=== PATIENT | female | born 1990 | race Two or more races ===

== ENCOUNTER 2018-12-07 22:36 | Emergency (ER) | payer OTHER ==
[~2018-12-07] VITALS: Ht 152.4 cm; Wt 77.1 kg
[2018-12-08] VITALS: BP 143/81
[2018-12-08] MEDS: GENTAMICIN OPTH sol 0.3% 5ml EACHEYE ONE (01:05)
== END 2018-12-08 01:12 | disposition home or self-care (01) ==
LOC: ER 22:38
DX: H10.9 Unspecified conjunctivitis (principal)

== ENCOUNTER 2019-04-27 09:44 | Emergency (ER) | payer MEDICAID ==
[~2019-04-27] VITALS: Ht 152.4 cm; Wt 81.6 kg
[2019-04-27 10:18] LABS: Basophils # (auto) 0.1 uL; Eosinophils # (auto) 0 uL; Hemoglobin 12.6 g/dL (12.2-16.2); Monocytes # (auto) 0.7 uL; Monocytes % (auto) 6.6 % (0.0-12.0); Nucleated Red Blood Cells % 0.1 %
[2019-04-27 10:20] LABS: Basophils % (auto) 0.5 % (0.0-2.0); Eosinophils % (auto) 0.4 % (0.0-7.0); Hematocrit 39.1 % (36.0-46.0); Lymphocytes # (auto) 1.9 uL; Mean Corpuscular Hemoglobin 26.2 pg (28.0-32.0); Mean Corpuscular Hgb Conc. 32.2 g/dL (32.0-36.0); Mean Corpuscular Volume 81.4 fL (80.0-100.0); Neutrophils % (auto) 74.5 % (37.0-80.0); Platelet Count (auto) 233 10^3/uL (140-450); Red Cell Distribution Width 16.9 % (11.8-14.3); White Blood Cell 10.8 10^3/uL (4.4-10.8)
[2019-04-27 10:28] LABS: Urine Bacteria NONE SEEN /hpf (None Seen); Urine Blood 3+ /uL (Negative); Urine WBC 10778 /hpf (0 - 5); Urine WBC Clumps PRESENT /hpf (None Seen)
[2019-04-27 10:38] LABS: Alanine Aminotransferase 17 U/L (13-56); Albumin 3.7 g/dL (3.4-5.0); Anion Gap 6 (5-15); Aspartate Aminotransferase 8 U/L (15-37); BUN/Creatinine Ratio 13.8; Blood Urea Nitrogen 11 mg/dL (7-18); Calcium 8.6 mg/dL (8.5-10.1); Carbon Dioxide 24 mmol/L (21-32); Chloride 108 mmol/L (98-107); GFR African American 111 mL/min; GFR Non-African American 91 mL/min; Glucose 100 mg/dL (74-106); Potassium 3.9 mmol/L (3.5-5.1); Sodium 138 mmol/L (136-145)
[2019-04-27 10:41] LABS: Alkaline Phosphatase 97 U/L (45-117); Bilirubin, Total < 0.1 mg/dL (0.2-1.0); Total Protein 7.8 g/dL (6.4-8.2)
[2019-04-27 11:24] LABS: Urine Specific Gravity 1.035 (1.001-1.035)
[2019-04-27 12:32] VITALS: BP 110/65
== END 2019-04-27 13:45 | disposition home or self-care (01) ==
LOC: ER 09:46
DX: O03.9 Complete or unspecified spontaneous abortion without complication (principal); N39.0 Urinary tract infection, site not specified
CPT/HCPCS: 36415; 76801; 80053; 81001; 84702; 85025

== ENCOUNTER 2019-05-26 16:07 | Emergency (ER) | payer MEDICAID ==
[~2019-05-26] VITALS: Ht 152.4 cm; Wt 83.0 kg
[2019-05-26 17:13] VITALS: BP 125/81
== END 2019-05-26 17:57 | disposition home or self-care (01) ==
LOC: ER 16:07
DX: J03.90 Acute tonsillitis, unspecified (principal)

== ENCOUNTER 2019-09-14 19:40 | Emergency (ER) | payer MEDICAID ==
[~2019-09-14] VITALS: Ht 152.4 cm; Wt 80.3 kg
[2019-09-14 20:51] LABS: Basophils # (auto) 0 uL; Eosinophils # (auto) 0.1 uL; Hemoglobin 12.8 g/dL (12.2-16.2); Lymphocytes # (auto) 1.6 uL; Mean Corpuscular Volume 81.4 fL (80.0-100.0); Monocytes # (auto) 0.7 uL; Neutrophils # (auto) 6.6 uL; Nucleated Red Blood Cells % 0.1 %
[2019-09-14 20:53] LABS: Basophils % (auto) 0.3 % (0.0-2.0); Eosinophils % (auto) 0.8 % (0.0-7.0); Hematocrit 38.3 % (36.0-46.0); Lymphocytes % (auto) 17.4 % (10.0-50.0); Mean Corpuscular Hemoglobin 27.2 pg (28.0-32.0); Mean Corpuscular Hgb Conc. 33.5 g/dL (32.0-36.0); Monocytes % (auto) 8.1 % (0.0-12.0); Neutrophils % (auto) 73.4 % (37.0-80.0); Platelet Count (auto) 212 10^3/uL (140-450); Red Cell Distribution Width 15.5 % (11.8-14.3)
[2019-09-14 20:55] LABS: Urine Bacteria NONE SEEN /hpf (None Seen); Urine Blood TRACE /uL (Negative); Urine Mucus FEW (None Seen); Urine Specific Gravity 1.033 (1.001-1.035); Urine WBC 2 /hpf (0 - 5)
[2019-09-14 21:07] LABS: Albumin 2.9 g/dL (3.4-5.0); Potassium 3.5 mmol/L (3.5-5.1)
[2019-09-14 21:09] LABS: BUN/Creatinine Ratio 11.5
[2019-09-14 21:12] LABS: Bilirubin, Total 0.2 mg/dL (0.2-1.0); Total Protein 7.2 g/dL (6.4-8.2)
[2019-09-14] MEDS ORDERED: AZITHROMYCIN 250 MG TAB PO ONE (23:45)
[2019-09-14] MEDS ORDERED: PROMETHAZINE HCL 25 MG/ML 1ML IM ONE (23:45)
[2019-09-15 01:04] VITALS: BP 104/65
== END 2019-09-15 01:19 | disposition home or self-care (01) ==
LOC: ER 19:43
DX: O26.892 Other specified pregnancy related conditions, second trimester (principal); R51 Headache; J06.9 Acute upper respiratory infection, unspecified; Z3A.16 16 weeks gestation of pregnancy
CPT/HCPCS: 36415; 80053; 81001; 85025; 96372; 99283; J2550

== ENCOUNTER 2020-02-23 06:16 | Inpatient (IN) | payer MEDICAID ==
[~2020-02-23] VITALS: Ht 152.4 cm; Wt 86.6 kg
[2020-02-23] MEDS ORDERED: LACT. RINGERS/OXYTOCIN 20UNITS 1,000 ML IV SCH (06:58)
[2020-02-23] MEDS ORDERED: NALBUPHINE HCL 10 MG/1ml INJECTION IV PRN (07:00)
[2020-02-23] MEDS ORDERED: DERMOPLAST 60ML BOTTLE TOP PRN (07:00)
[2020-02-23] MEDS ORDERED: METHYLERGONOVINE MALEATE 0.2 MG/ML AMP IM PRN (07:00)
[2020-02-23] MEDS ORDERED: LIDOCAINE 2%HCL (LOCAL ANESTH.) INJ 20ML MDV ID ONE (07:00)
[2020-02-23] MEDS ORDERED: WITCH HAZEL-GLYCERIN PAD TOP PRN (07:00)
[2020-02-23] MEDS ORDERED: PHISODERM TOP SOLN 240ML BTL TOP PRN (07:00)
[2020-02-23] MEDS ORDERED: FERR-7 PO (07:10)
[2020-02-23] MEDS ORDERED: PREN27TA7 OR (07:10)
[2020-02-23] MEDS ORDERED: PENICILLIN G POT 5MIL/D5 50ML 50 ML IV ONE (07:15)
[2020-02-23] MEDS: LACTATED RINGER'S 1,000 ML IV SCH ×3 (07:26→12:00)
[2020-02-23 07:55] LABS: Urine Bacteria FEW /hpf (None Seen); Urine Blood Negative /uL (Negative); Urine Mucus FEW (None Seen); Urine Specific Gravity 1.032 (1.001-1.035); Urine WBC 4 /hpf (0 - 5)
[2020-02-23 08:08] LABS: Amphetamine Screen, Urine NEGATIVE (NEGATIVE); Barbiturate Scree,Urine NEGATIVE (NEGATIVE); Benzodiazephine Screen, Urine NEGATIVE (NEGATIVE); Cannabinoid Screen, Urine NEGATIVE (NEGATIVE); Cocaine Screen, Urine NEGATIVE (NEGATIVE); Opiate Scree,Urine NEGATIVE (NEGATIVE); Phencyclidine Screen, Urine NEGATIVE (NEGATIVE)
[2020-02-23 08:09] LABS: Alcohol, Urine < 3.0 mg/dL (0-10)
[2020-02-23 08:15] LABS: Basophils # (auto) 0 10 ^3/uL (0-0.2); Eosinophils # (auto) 0 10 ^3/uL (0-0.8); Eosinophils % (auto) 0.2 % (0.0-7.0); Lymphocytes # (auto) 1.8 10 ^3/uL (0.4-5.4); Neutrophils # (auto) 7.4 10 ^3/uL (1.6-8.6); Nucleated Red Blood Cells % 0.1 %; White Blood Cell 10.1 10^3/uL (4.4-10.8)
[2020-02-23 08:16] LABS: Basophils % (auto) 0.3 % (0.0-2.0); Hematocrit 34.9 % (36.0-46.0); Hemoglobin 10.9 g/dL (12.2-16.2); Lymphocytes % (auto) 17.4 % (10.0-50.0); Mean Corpuscular Hemoglobin 22.9 pg (28.0-32.0); Mean Corpuscular Hgb Conc. 31.3 g/dL (32.0-36.0); Monocytes # (auto) 0.9 10 ^3/uL (0-1.3); Monocytes % (auto) 8.8 % (0.0-12.0); Neutrophils % (auto) 73.3 % (37.0-80.0); Platelet Count (auto) 227 10^3/uL (140-450); Red Blood Cells 4.78 10^6/uL (4.0-5.20)
[2020-02-23 08:22] LABS: INR 0.92 (0.9-1.15); Partial Thromboplastin Time 27.4 sec (23.64-32.05)
[2020-02-23 08:28] LABS: Albumin 2.5 g/dL (3.4-5.0); BUN/Creatinine Ratio 23.2; Calcium 8.3 mg/dL (8.5-10.1); Potassium 3.9 mmol/L (3.5-5.1)
[2020-02-23] MEDS ORDERED: LIDOCAINE HCL 2 %PF INJ 10ML AMP IJ ONE ×2 (08:30→09:45)
[2020-02-23] MEDS ORDERED: fentaNYL 200mCg/100ml W ROPIVA 100 ML EPI SCH ×2 (08:30→09:45)
[2020-02-23] MEDS ORDERED: fentaNYL CITRATE 100 MCG/2 ML VL IV ONE ×2 (08:30→09:45)
[2020-02-23] MEDS ORDERED: NALOXONE HCL 0.4 MG/ML VIAL IV ONE ×2 (08:30→09:45)
[2020-02-23] MEDS ORDERED: ePHEDrine SULFATE 50 MG/ML AMP IV ONE ×2 (08:30→09:45)
[2020-02-23 08:31] LABS: Bilirubin, Total 0.2 mg/dL (0.2-1.0); Total Protein 6.6 g/dL (6.4-8.2)
[2020-02-23] MEDS ORDERED: ONDANSETRON HCL 4 MG/2 ML VIAL ONE (09:11)
[2020-02-23] MEDS ORDERED: LACTATED RINGER'S 1,000 ML IV ONE (09:39)
[2020-02-23] MEDS ORDERED: PENICILLIN G POTASSIUM 2,500,000 UNITS in D5W 5% 50 ML IV SCH (11:15)
[2020-02-23] MEDS ORDERED: ACETAMINOPHEN 325 MG TAB PO PRN (16:15)
[2020-02-23] MEDS ORDERED: IBUPROFEN 600 MG TAB PO PRN (16:15)
--- NOTE | 2020-02-23 17:00 | NUR ---
Bottle-feeding Education: Patient encouraged to breastfeed. Benefits of and the risk of providing formula to was discussed. Patient verbalized understanding of the benefits and is aware of risk and insists on bottle-feeding. Formula provided and instruction on formula preperation from the [facility] booklet reviewed with patient.
[2020-02-23 18:30] VITALS: BP 120/75
--- NOTE | 2020-02-23 18:30 | NUR ---
Ambulation: Patient OOB with standby assistance by RN. Patient ambulated to bathroom with steady gait. Patient able to void without difficulty, 300 ML. [facility] teaching provided with returned demonstration by patient. Clean gown provided and bed linen changed. Patient ambulated back to bed with steady gait and no distress noted.
--- NOTE | 2020-02-23 19:00 | NUR ---
ROOM CHANGE: PATIENT AND ALL BELONGINGS MOVED TO ROOM 7-B. PATIENT AMBULATED, GAIT STEADY, TO ROOM WHILE PUSHING IN OPEN CRIB. PATIENT ORIENTED TO ROOM. SAFETY PRECAUTIONS IN PLACE; BED IN LOW POSITION, WHEELS LOCKED, SIDE RAILS UP X2, AND CALL LIGHT WITHIN REACH.
[2020-02-23 23:30] VITALS: BP 133/77
[2020-02-24 03:20] VITALS: BP 140/78
[2020-02-24 06:40] VITALS: BP 126/85
[2020-02-24 11:15] VITALS: BP 134/89
--- NOTE | 2020-02-24 13:50 | NUR ---
IV removal Pt c/o pain at IV site; IV DC'd with clean technique, catheter fully intact. Pressure dressing applied to site. Patient tolerated procedure well.
[2020-02-24 15:00] VITALS: BP 118/68
--- NOTE | 2020-02-24 15:40 | NUR ---
Report given to Diamond Flynn RN on stable patient. Care transferred at this time.
--- NOTE | 2020-02-24 17:15 | NUR ---
Discharge: Discharge instructions given as ordered. Pt encouraged to follow up with PATHOLOGY SPECIALIST as instructed. All questions and concerns addressed. Patient verbalized understanding. Medication reconciliation completed and copy given to patient. All required/requested vaccines given and copies of vaccinations given to patient. Patient encouraged to prepare to depart unit.
--- NOTE | 2020-02-24 18:00 | NUR ---
Discharge: Patient taken to vehicle ambulating with all personal belongings, accompanied by staff and family member. No distress noted at time of departure, no adverse changes in status since initial assessment.
== END 2020-02-24 18:00 | disposition home or self-care (01) | DRG 560 ==
LOC: UNDOADMOB 06:16 → LDRP 06:16 → INTOOBSV 06:50 → OBSVTOIN 06:50 → LDRP 06:50
PROVIDERS: ADMIT Specialist; ATTEND Specialist
PROC: 10E0XZZ Delivery of Products of Conception, External Approach (ICD-10-PCS; principal; 2020-02-23)
PROC: 10907ZC Drainage of Amniotic Fluid, Therapeutic from Products of Conception, Via Natural or Artificial Opening (ICD-10-PCS; 2020-02-23)
PROC: 3E0R3BZ Introduction of Anesthetic Agent into Spinal Canal, Percutaneous Approach (ICD-10-PCS; 2020-02-23)
PROC: 00HU33Z Insertion of Infusion Device into Spinal Canal, Percutaneous Approach (ICD-10-PCS; 2020-02-23)
PROC: 10H073Z Insertion of Monitoring Electrode into Products of Conception, Via Natural or Artificial Opening (ICD-10-PCS; 2020-02-23)
DX: O99.824 Streptococcus B carrier state complicating childbirth (principal); Z11.59 Encounter for screening for other viral diseases; Z37.0 Single live birth; Z3A.39 39 weeks gestation of pregnancy
CPT/HCPCS: 36415; 59025; 59409; 80053; 80307; 81001; 81002; 84112; 85025; 85610; 85730; 86592; 86850; 86900; 86901; 96360; 96361; 96365; 96366; G0378; J2405; J2590; J7060

== ENCOUNTER 2021-01-27 11:30 | Inpatient (IN) | payer MEDICAID ==
[~2021-01-27] VITALS: Ht 154.9 cm; Wt 86.6 kg
[~2021-01-27 11:30] MED LIST: FERR-7 PO; PREN27TA7 OR
[2021-01-27] MEDS ORDERED: PHISODERM TOP SOLN 240ML BTL TOP PRN (12:00)
[2021-01-27] MEDS ORDERED: WITCH HAZEL-GLYCERIN PAD TOP PRN (12:00)
[2021-01-27] MEDS ORDERED: PENICILLIN G POT 5MIL/D5 50ML 50 ML IV ONE (12:00)
[2021-01-27] MEDS ORDERED: DERMOPLAST 60ML BOTTLE TOP PRN (12:00)
[2021-01-27] MEDS ORDERED: LACTATED RINGER'S 1,000 ML IV SCH ×2 (12:00→17:05)
[2021-01-27] MEDS ORDERED: LIDOCAINE 2%HCL (LOCAL ANESTH.) INJ 20ML MDV IJ PRN (12:00)
[2021-01-27] MEDS ORDERED: LACT. RINGERS/OXYTOCIN 20UNITS 500 ML IV ONE ×2 (12:30→13:00)
[2021-01-27 12:49] LABS: Basophils # (auto) 0 10 ^3/uL (0-0.2); Basophils % (auto) 0.2 % (0.0-2.0); Eosinophils # (auto) 0 10 ^3/uL (0-0.8); Hemoglobin 11.3 g/dL (12.2-16.2); Mean Corpuscular Hgb Conc. 32.6 g/dL (32.0-36.0)
[2021-01-27 12:51] LABS: Eosinophils % (auto) 0.1 % (0.0-7.0); Hematocrit 34.7 % (36.0-46.0); Lymphocytes # (auto) 1.7 10 ^3/uL (0.4-5.4); Lymphocytes % (auto) 13.8 % (10.0-50.0); Mean Corpuscular Hemoglobin 25.3 pg (28.0-32.0); Mean Corpuscular Volume 77.6 fL (80.0-100.0); Monocytes # (auto) 0.6 10 ^3/uL (0-1.3); Monocytes % (auto) 5.3 % (0.0-12.0); Neutrophils # (auto) 9.7 10 ^3/uL (1.6-8.6); Neutrophils % (auto) 80.6 % (37.0-80.0); Nucleated Red Blood Cells % 0.3 %; Platelet Count (auto) 177 10^3/uL (140-450); Red Blood Cells 4.48 10^6/uL (4.0-5.20); Red Cell Distribution Width 17.4 % (11.8-14.3)
[2021-01-27 13:04] LABS: INR 0.92 (0.9-1.15); Partial Thromboplastin Time 26.2 sec (23.0-31.2)
[2021-01-27 13:09] LABS: Albumin 2.5 g/dL (3.4-5.0); BUN/Creatinine Ratio 13.3; Calcium 8.2 mg/dL (8.5-10.1); Potassium 3.7 mmol/L (3.5-5.1)
[2021-01-27 13:12] LABS: Bilirubin, Total 0.3 mg/dL (0.2-1.0); Total Protein 6.3 g/dL (6.4-8.2)
[2021-01-27] MEDS ORDERED: IBUPROFEN 600 MG TAB PO PRN (14:00)
[2021-01-27 14:34] LABS: Urine Bacteria NONE SEEN /hpf (None Seen); Urine Blood 2+ /uL (Negative); Urine Mucus FEW (None Seen); Urine WBC 3 /hpf (0 - 5)
[2021-01-27 14:50] LABS: Alcohol, Urine < 3.0 mg/dL (0-10); Amphetamine Screen, Urine NEGATIVE (NEGATIVE); Barbiturate Scree,Urine NEGATIVE (NEGATIVE); Benzodiazephine Screen, Urine NEGATIVE (NEGATIVE); Cannabinoid Screen, Urine NEGATIVE (NEGATIVE); Cocaine Screen, Urine NEGATIVE (NEGATIVE); Opiate Scree,Urine NEGATIVE (NEGATIVE); Phencyclidine Screen, Urine NEGATIVE (NEGATIVE)
[2021-01-27] MEDS ORDERED: PENICILLIN G POTASSIUM 2,500,000 UNITS in D5W 5% 50 ML IV SCH (16:00)
[2021-01-27 19:30] VITALS: BP 138/75
[2021-01-27 23:30] VITALS: BP 123/74
[2021-01-28 03:15] VITALS: BP 143/78
[2021-01-28 06:06] LABS: RPR Non Reactive (Non Reactive)
[2021-01-28 07:15] VITALS: BP_SYST 130; BP_SYST 143; BP_DIAS 72; BP_DIAS 78
[2021-01-28 10:30] VITALS: BP 114/74
[2021-01-28 15:07] VITALS: BP 137/75
== END 2021-01-28 17:20 | disposition home or self-care (01) | DRG 560 ==
LOC: LDRP 11:30
PROVIDERS: ADMIT Specialist; ATTEND Specialist
PROC: 10E0XZZ Delivery of Products of Conception, External Approach (ICD-10-PCS; principal; 2021-01-27)
PROC: 10907ZC Drainage of Amniotic Fluid, Therapeutic from Products of Conception, Via Natural or Artificial Opening (ICD-10-PCS; 2021-01-27)
DX: O80 Encounter for full-term uncomplicated delivery (principal); Z20.822 Contact with and (suspected) exposure to COVID-19; Z37.0 Single live birth; Z3A.37 37 weeks gestation of pregnancy
CPT/HCPCS: 36415; 59025; 59409; 80053; 80307; 81001; 85025; 85610; 85730; 86592; 86703; 86762; 86850; 86900; 86901; 87340; 87426; 94760; 96360; 96361; G0378; J2540; J2590; J7060

== ENCOUNTER 2022-07-23 15:43 | Emergency (ER) | payer MEDICAID ==
[~2022-07-23] VITALS: Ht 152.4 cm; Wt 86.0 kg
[2022-07-23 16:30] VITALS: BP 128/91
[2022-07-23] MEDS ORDERED: cefTRIAXone SOD 1,000 MG VL IM ONE (17:15)
[2022-07-23] MEDS ORDERED: IBUPROFEN 800 MG TAB PO ONE (17:15)
[2022-07-23] MEDS ORDERED: AMOX-277 PO (18:00)
[2022-07-23] MEDS ORDERED: PROM1SOL4 PO (18:00)
[2022-07-23] MEDS ORDERED: IBUP800T27 PO (18:00)
== END 2022-07-23 18:09 | disposition home or self-care (01) ==
LOC: ER 15:43
DX: H66.93 Otitis media, unspecified, bilateral (principal); J20.9 Acute bronchitis, unspecified
CPT/HCPCS: 71046; 96372; 99283; J0696

== ENCOUNTER 2023-01-11 10:13 | Emergency (ER) | payer MEDICAID ==
[~2023-01-11] VITALS: Ht 152.4 cm; Wt 86.3 kg
[~2023-01-11 10:13] MED LIST changes: +AMOX-277 PO; +IBUP800T27 PO; +PROM1SOL4 PO
[2023-01-11 10:25] VITALS: BP 132/78
[2023-01-11] MEDS ORDERED: SODIUM CHLORIDE 0.9% 1,000 ML IVB ONE (10:45)
[2023-01-11 10:49] LABS: Basophils # (auto) 0.1 10 ^3/uL (0-0.2); Eosinophils # (auto) 0.1 10 ^3/uL (0-0.8); Hemoglobin 11.8 g/dL (12.2-16.2); Monocytes # (auto) 0.7 10 ^3/uL (0-1.3); Nucleated Red Blood Cells % 0.1 %
[2023-01-11 10:52] LABS: Basophils % (auto) 0.7 % (0.0-2.0); Eosinophils % (auto) 0.9 % (0.0-7.0); Hematocrit 36.4 % (36.0-46.0); Lymphocytes % (auto) 27.9 % (10.0-50.0); Mean Corpuscular Hemoglobin 25.9 pg (28.0-32.0); Mean Corpuscular Hgb Conc. 32.5 g/dL (32.0-36.0); Mean Corpuscular Volume 79.6 fL (80.0-100.0); Monocytes % (auto) 6.9 % (0.0-12.0); Neutrophils # (auto) 6.8 10 ^3/uL (1.6-8.6); Neutrophils % (auto) 63.6 % (37.0-80.0); Red Blood Cells 4.57 10^6/uL (4.0-5.20); White Blood Cell 10.6 10^3/uL (4.4-10.8)
[2023-01-11 10:54] LABS: Urine Bacteria FEW /hpf (None Seen); Urine Blood TRACE /uL (Negative); Urine Mucus FEW (None Seen); Urine Specific Gravity 1.025 (1.001-1.035); Urine WBC 1 /hpf (0 - 5)
[2023-01-11 11:10] LABS: Albumin 3.7 g/dL (3.4-5.0); Calcium 8.9 mg/dL (8.5-10.1); Magnesium 2.3 mg/dL (1.6-2.6); Potassium 4.2 mmol/L (3.5-5.1)
[2023-01-11 11:15] LABS: Bilirubin, Total 0.2 mg/dL (0.2-1.0)
[2023-01-11 12:28] LABS: BUN/Creatinine Ratio 20.5 (10.0-20.0)
== END 2023-01-11 12:42 | disposition home or self-care (01) ==
LOC: EDBD 10:13 → ER 10:13
DX: R55 Syncope and collapse (principal); R07.89 Other chest pain
CPT/HCPCS: 36415; 70450; 71045; 80053; 81001; 83735; 84484; 84702; 85025; 93005; 96360; 99285; J7030

== ENCOUNTER 2023-09-24 07:50 | Day surgery (SDC) | payer MEDICAID ==
[2023-09-22 10:21] LABS: Urine Epithelial Cast None Seen /hpf (<5)
[2023-09-22 10:32] LABS: Basophils # (auto) 0 10 ^3/uL (0-0.2); Eosinophils # (auto) 0.1 10 ^3/uL (0-0.8); Eosinophils % (auto) 0.8 % (0.0-7.0); Hemoglobin 11.6 g/dL (12.2-16.2); Mean Corpuscular Hemoglobin 25.5 pg (28.0-32.0); Mean Corpuscular Hgb Conc. 31.7 g/dL (32.0-36.0); Neutrophils # (auto) 5.2 10 ^3/uL (1.6-8.6); Red Blood Cells 4.54 10^6/uL (4.0-5.20)
[2023-09-22 10:35] LABS: Basophils % (auto) 0.5 % (0.0-2.0); Hematocrit 36.5 % (36.0-46.0); Lymphocytes # (auto) 2.1 10 ^3/uL (0.4-5.4); Lymphocytes % (auto) 26.5 % (10.0-50.0); Mean Corpuscular Volume 80.3 fL (80.0-100.0); Monocytes # (auto) 0.6 10 ^3/uL (0-1.3); Neutrophils % (auto) 65.2 % (37.0-80.0); Red Cell Distribution Width 15.9 % (11.8-14.3); White Blood Cell 7.9 10^3/uL (4.4-10.8)
[2023-09-22 10:40] LABS: INR 1.04 (0.9-1.15); Partial Thromboplastin Time 33.7 SEC (24.5-34.5); Prothrombin Time 10.9 sec (9.3-11.8)
[2023-09-22 10:41] LABS: Urine Bacteria NONE SEEN /hpf (None Seen); Urine Blood 1+ /uL (Negative); Urine Clarity Clear (Clear); Urine Color Yellow (Yellow); Urine Mucus FEW (None Seen); Urine Protein, UAD Negative (Negative); Urine Specific Gravity 1.024 (1.001-1.035); Urine Urobilinogen Normal (Negative); Urine WBC 6 /hpf (0 - 5); Urine pH 5.5 (5.0-8.0)
[2023-09-22 11:10] LABS: Alanine Aminotransferase 11 U/L (7-40); Albumin 4.4 g/dL (3.2-4.8); Alkaline Phosphatase 114 U/L (46-116); Anion Gap 5 (5-15); Aspartate Aminotransferase 11 U/L (13-40); Blood Urea Nitrogen 9 mg/dL (9-23); Calcium 9.1 mg/dL (8.5-10.1); Carbon Dioxide 26 mmol/L (20-30); Chloride 106 mmol/L (98-107); Glucose 92 mg/dL (74-106); Potassium 4.1 mmol/L (3.5-5.1); Sodium 137 mmol/L (136-145)
[2023-09-22 11:11] LABS: Bilirubin, Total 0.4 mg/dL (0.2-1.0); Total Protein 7.2 g/dL (5.7-8.2)
[~2023-09-24] VITALS: Ht 152.4 cm; Wt 87.5 kg
[~2023-09-24 07:50] MED LIST changes: -AMOX-277 PO; +AMOX875T4 PO; +IBUP-1456 PO; -IBUP800T27 PO
[2023-09-24] MEDS ORDERED: fentaNYL CITRATE 100 MCG/2 ML VL ONE (09:38)
[2023-09-24] MEDS ORDERED: HYDROmorphone HCL 2 MG/ML VL/or syr ONE (09:38)
[2023-09-24] MEDS ORDERED: MIDAZOLAM HCL 2MG/2ML 2ml VIAL (1mg/ml) ONE (09:39)
[2023-09-24] MEDS ORDERED: GLYCOPYRROLATE 0.2 MG/ML 1ML VIAL ONE (09:40)
[2023-09-24] MEDS ORDERED: KETOROLAC TROMETH 30 MG/ML 1ML VIAL ONE (09:40)
[2023-09-24] MEDS ORDERED: ONDANSETRON HCL 4 MG/2 ML VIAL ONE (09:40)
[2023-09-24] MEDS ORDERED: ePHEDrine SULFATE 50 MG/ML AMP ONE (09:40)
[2023-09-24] MEDS ORDERED: DexAMETHasone SOD PHOS 10MG/1ML VIAL INJ ONE (09:40)
[2023-09-24] MEDS ORDERED: LIDOCAINE 1% INJ PF 5ML AMP ONE (09:40)
[2023-09-24] MEDS ORDERED: PROPOFOL 10 MG/ML 20 ML IV ONE (09:40)
[2023-09-24] MEDS ORDERED: HYDR1TAB97 PO (11:12)
[2023-09-24] MEDS ORDERED: LIDOCAINE W/ EPINEPHRINE 1% 20ML VIAL ONE (11:21)
[2023-09-24 13:47] VITALS: TEMP 98.7
[2023-09-24] MEDS ORDERED: HYDROmorphone HCL 2 MG/ML VL/or syr IV PRN (14:00)
[2023-09-24] MEDS ORDERED: ONDANSETRON HCL 4 MG/2 ML VIAL IV PRN (14:00)
[2023-09-24] MEDS ORDERED: FAMOTIDINE (10MG/ML) 2ML VL IV ONE ×3 (14:45→15:10)
[2023-09-24] MEDS ORDERED: PROMETHAZINE HCL 25 MG/ML 1ML IM ONE (14:45)
[2023-09-24 15:00] VITALS: PULSE 82; O2SAT 96
[2023-09-24] MEDS ORDERED: PROMETHAZINE HCL 25 MG/ML 1ML IV ONE (15:35)
[2023-09-24 15:47] VITALS: PULSE 101; RESP 12; O2SAT 100
[2023-09-24 18:20] VITALS: BP 142/82; PULSE 111; RESP 12; O2SAT 96
== END 2023-09-24 18:50 | disposition home or self-care (01) ==
LOC: SUR 07:50
PROVIDERS: ATTEND Obstetrics & Gynecology
DX: Z30.2 Encounter for sterilization (principal); N88.8 Other specified noninflammatory disorders of cervix uteri; F41.8 Other specified anxiety disorders; J40 Bronchitis, not specified as acute or chronic; Z79.1 Long term (current) use of non-steroidal anti-inflammatories (NSAID); Z98.51 Tubal ligation status; Z98.890 Other specified postprocedural states
CPT/HCPCS: 36415; 58563; 58671; 80053; 81001; 81025; 84702; 85025; 85610; 85730; 86850; 86900; 86901; 88305; J1100; J1170; J1885; J2250; J2405; J2550; J2704; J3010; J3490

== ENCOUNTER 2023-12-21 16:36 | Emergency (ER) | payer MEDICAID ==
[~2023-12-21] VITALS: Ht 152.4 cm; Wt 90.1 kg
[~2023-12-21 16:36] MED LIST changes: +HYDR1TAB97 PO
[2023-12-21 17:00] VITALS: BP 150/86; RESP 18; O2SAT 96
[2023-12-21 18:26] LABS: Basophils # (auto) 0.1 10 ^3/uL (0-0.2); Eosinophils # (auto) 0 10 ^3/uL (0-0.8); Eosinophils % (auto) 0.2 % (0.0-7.0); Hemoglobin 12.4 g/dL (12.2-16.2)
[2023-12-21 18:29] LABS: Basophils % (auto) 0.5 % (0.0-2.0); Hematocrit 38.6 % (36.0-46.0); Lymphocytes # (auto) 2.6 10 ^3/uL (0.4-5.4); Lymphocytes % (auto) 15.1 % (10.0-50.0); Mean Corpuscular Hemoglobin 25.9 pg (28.0-32.0); Mean Corpuscular Hgb Conc. 32.3 g/dL (32.0-36.0); Mean Corpuscular Volume 80.2 fL (80.0-100.0); Monocytes # (auto) 1.6 10 ^3/uL (0-1.3); Monocytes % (auto) 9.6 % (0.0-12.0); Neutrophils # (auto) 12.7 10 ^3/uL (1.6-8.6); Neutrophils % (auto) 74.6 % (37.0-80.0); Red Blood Cells 4.81 10^6/uL (4.0-5.20); Red Cell Distribution Width 15.8 % (11.8-14.3)
[2023-12-21 18:42] LABS: Alanine Aminotransferase 26 U/L (7-40); Albumin 4.5 g/dL (3.2-4.8); Alkaline Phosphatase 155 U/L (46-116); Anion Gap 6 (5-15); Aspartate Aminotransferase 13 U/L (13-40); BUN/Creatinine Ratio 18.4 (10.0-20.0); Bilirubin, Total 0.2 mg/dL (0.2-1.0); Blood Urea Nitrogen 14 mg/dL (9-23); Calcium 10.2 mg/dL (8.7-10.4); Carbon Dioxide 26 mmol/L (20-30); Chloride 105 mmol/L (98-107); Glucose 111 mg/dL (74-106); Potassium 4.1 mmol/L (3.5-5.1); Sodium 137 mmol/L (136-145); Total Protein 7.6 g/dL (5.7-8.2)
[2023-12-21 19:12] LABS: Urine Bacteria FEW /hpf (None Seen); Urine Blood 1+ /uL (Negative); Urine Clarity Ex.Turbid (Clear); Urine Color Light-Orange (Yellow); Urine Mucus FEW (None Seen); Urine Protein, UAD 1+ (Negative); Urine Specific Gravity 1.039 (1.001-1.035); Urine Urobilinogen 2 mg/dL (Negative); Urine WBC 3 /hpf (0 - 5)
[2023-12-21 19:35] LABS: Amphetamine Screen, Urine Neg (NEGATIVE); Barbiturate Scree,Urine Neg (NEGATIVE); Benzodiazephine Screen, Urine Neg (NEGATIVE); Cocaine Screen, Urine Neg (NEGATIVE); Opiate Scree,Urine Neg (NEGATIVE); Phencyclidine Screen, Urine Neg (NEGATIVE)
[2023-12-21 19:36] LABS: Cannabinoid Screen, Urine Neg (NEGATIVE)
[2023-12-21] MEDS ORDERED: BENZ200C64 PO (22:20)
[2023-12-21] MEDS ORDERED: SODIUM CHLORIDE 0.9% 1,000 ML IV ONE (22:30)
[2023-12-21] MEDS ORDERED: cefTRIAXone 1GM/50ML D5W 50 ML IV ONE (22:30)
[2023-12-21 22:31] VITALS: PULSE 126
== END 2023-12-22 04:01 | disposition home or self-care (01) ==
LOC: ER 16:36
DX: R00.2 Palpitations (principal); R07.89 Other chest pain; J20.9 Acute bronchitis, unspecified; Z79.899 Other long term (current) drug therapy
CPT/HCPCS: 36415; 71045; 80053; 80307; 81001; 83605; 83880; 84443; 84484; 85025; 93005

== ENCOUNTER 2024-01-06 11:40 | Emergency (ER) | payer MEDICAID ==
[~2024-01-06] VITALS: Ht 152.4 cm; Wt 86.3 kg
[~2024-01-06 11:40] MED LIST changes: +BENZ200C64 PO
[2024-01-06 13:14] VITALS: BP 130/68; PULSE 68; TEMP 98.7
[2024-01-06 13:33] VITALS: RESP 16; O2SAT 97
[2024-01-06] MEDS: IPRATROPIUM BROM 0.5 MG/2.5ML INH SOL NEB ONE (13:33)
[2024-01-06] MEDS: ALBUTEROL SULF 2.5 MG/0.5ML(0.5%) NEB SOLN NEB ONE (13:33)
[2024-01-06] MEDS ORDERED: CEPH250S41 PO (13:59)
== END 2024-01-06 14:00 | disposition home or self-care (01) ==
LOC: ER 11:40
DX: J20.9 Acute bronchitis, unspecified (principal); J04.0 Acute laryngitis
CPT/HCPCS: 71046; 94640; 99283; J7644

== ENCOUNTER → 2024-01-28 | Outpatient (CLI) | payer MEDICAID ==
[~2024-01-28] MED LIST changes: +ALBUTEROL SULF 2.5 MG/0.5ML(0.5%) NEB SOLN ONE; +CEPH250S41 PO
== END | disposition home or self-care (01) ==
LOC: RT 01-06 10:59
PROVIDERS: ATTEND Internal Medicine Pulmonary Disease
DX: R05.3 Chronic cough (principal); R06.02 Shortness of breath; R06.09 Other forms of dyspnea
CPT/HCPCS: 94060; 94727; 94729